=== PATIENT | female | born 1940 | race Caucasian/White ===

== ENCOUNTER 2016-10-17 08:39 | Emergency (ER) | payer MEDICARE, MEDICAID ==
[~2016-10-17] VITALS: Ht 162.6 cm; Wt 63.5 kg
[~2016-10-17 08:39] MED LIST: ASPI81TA2 PO; ATEN50TA PO; ATOR40TA PO; ESCI10TA PO; FEXO-61 PO; METF500T4 PO; PRIM50TA PO
[2016-10-17] MEDS ORDERED: HYDROCODONE/APAP 5/325MG 1 EACH TABLET ONE (10:11)
[2016-10-17 10:20] VITALS: BP 137/95
[2016-10-17] MEDS ORDERED: HYDROCODONE/APAP 5/325MG 1 EACH TABLET PO ONE (10:30)
== END 2016-10-17 10:46 | disposition home or self-care (01) ==
LOC: ER 08:43
DX: S92.101A Unspecified fracture of right talus, initial encounter for closed fracture (principal); S90.31XA Contusion of right foot, initial encounter; I10 Essential (primary) hypertension; E78.00 Pure hypercholesterolemia, unspecified; E11.9 Type 2 diabetes mellitus without complications; Z79.82 Long term (current) use of aspirin; X37.1XXA Tornado, initial encounter; Y93.89 Activity, other specified; Y92.89 Other specified places as the place of occurrence of the external cause; Y99.8 Other external cause status
CPT/HCPCS: 29515; 73610 ×2; 73630 ×2; 99284; A4606; Z7610